=== PATIENT | female | born 1975 | race Caucasian/White ===

== ENCOUNTER → 2016-06-08 | Outpatient (CLI) | payer OTHER | LOC: LAB 12:12 | DX: M54.5 Low back pain (principal); Z79.82 Long term (current) use of aspirin; Z79.899 Other long term (current) drug therapy; K59.00 Constipation, unspecified; M25.78 Osteophyte, vertebrae; M47.814 Spondylosis without myelopathy or radiculopathy, thoracic region; Z88.1 Allergy status to other antibiotic agents | CPT/HCPCS: 72072; 74000 ==

== ENCOUNTER → 2016-06-22 | Outpatient (CLI) | payer OTHER | LOC: KOH-I 09:00 | DX: R51 Headache (principal) | CPT/HCPCS: 70450 ==

== ENCOUNTER → 2016-07-07 | Outpatient (CLI) | payer OTHER ==
[2016-07-07 11:30] LABS: HEMOGLOBIN 13.7 gm/dl (12.3-15.3); RED BLOOD COUNT 4.85 M/UL (4.00-5.10); WHITE BLOOD COUNT 5.1 K/UL (4.5-11.0)
[2016-07-07 11:53] LABS: BUN/CREATININE RATIO 45 (0-10)
== END ==
LOC: RAD 10:29
PROVIDERS: Emergency Medicine
DX: R60.0 Localized edema (principal); S29.012A Strain of muscle and tendon of back wall of thorax, initial encounter; S29.011A Strain of muscle and tendon of front wall of thorax, initial encounter; Y99.9 Unspecified external cause status
CPT/HCPCS: 36415; 73130; 73630; 80053; 83735; 83880; 84550; 85027

== ENCOUNTER → 2016-07-30 | Outpatient (CLI) | payer OTHER | LOC: RAD 15:27 | DX: M13.862 Other specified arthritis, left knee (principal); Z88.1 Allergy status to other antibiotic agents; Z79.82 Long term (current) use of aspirin; Z79.899 Other long term (current) drug therapy | CPT/HCPCS: 73564 ==

== ENCOUNTER → 2016-08-28 | Outpatient (CLI) | payer OTHER ==
[2016-08-28 11:04] LABS: HEMOGLOBIN 14.3 gm/dl (12.3-15.3); RED BLOOD COUNT 5.07 M/UL (4.00-5.10); WHITE BLOOD COUNT 5.1 K/UL (4.5-11.0)
[2016-08-28 11:28] LABS: BUN/CREATININE RATIO 24 (0-10)
== END ==
LOC: LAB 10:01
PROVIDERS: Emergency Medicine
DX: R10.12 Left upper quadrant pain (principal); E11.649 Type 2 diabetes mellitus with hypoglycemia without coma; E11.42 Type 2 diabetes mellitus with diabetic polyneuropathy; E11.65 Type 2 diabetes mellitus with hyperglycemia; E11.69 Type 2 diabetes mellitus with other specified complication; E66.8 Other obesity; E78.2 Mixed hyperlipidemia; G43.009 Migraine without aura, not intractable, without status migrainosus; G89.4 Chronic pain syndrome; J30.2 Other seasonal allergic rhinitis; J30.89 Other allergic rhinitis; M13.811 Other specified arthritis, right shoulder; M13.861 Other specified arthritis, right knee; M13.862 Other specified arthritis, left knee; M22.3X1 Other derangements of patella, right knee; M54.5 Low back pain; M67.863 Other specified disorders of tendon, right knee; R03.0 Elevated blood-pressure reading, without diagnosis of hypertension; R06.02 Shortness of breath; R23.8 Other skin changes; K59.00 Constipation, unspecified; S29.011A Strain of muscle and tendon of front wall of thorax, initial encounter; S29.012A Strain of muscle and tendon of back wall of thorax, initial encounter; S46.091S Other injury of muscle(s) and tendon(s) of the rotator cuff of right shoulder, sequela; S83.91XD Sprain of unspecified site of right knee, subsequent encounter; Y99.9 Unspecified external cause status
CPT/HCPCS: 36415; 74000; 80053; 82150; 83690; 85027

== ENCOUNTER 2016-08-30 13:26 | Emergency (ER) | payer OTHER ==
[2016-08-30 16:09] LABS: HEMOGLOBIN 14.9 gm/dl (12.3-15.3); RED BLOOD COUNT 5.22 M/UL (4.00-5.10); WHITE BLOOD COUNT 4.9 K/UL (4.5-11.0)
[2016-08-30 16:29] LABS: BUN/CREATININE RATIO 28 (0-10)
== END 2016-08-30 20:00 | disposition home or self-care (01) ==
LOC: ER1 13:26
PROVIDERS: Student in an Organized Health Care Education/Training Program
DX: R10.12 Left upper quadrant pain (principal); E87.6 Hypokalemia; E10.649 Type 1 diabetes mellitus with hypoglycemia without coma; R19.7 Diarrhea, unspecified; R11.2 Nausea with vomiting, unspecified; F17.210 Nicotine dependence, cigarettes, uncomplicated; E10.40 Type 1 diabetes mellitus with diabetic neuropathy, unspecified; Z90.49 Acquired absence of other specified parts of digestive tract; Z88.1 Allergy status to other antibiotic agents
CPT/HCPCS: 36415; 80053; 81001; 83605; 83690; 85025; 87086; 96361; 96374; 96375; 99284; J2270; J2405; J7050; Q9962

== ENCOUNTER 2016-09-27 20:04 | Emergency (ER) | payer OTHER | END 2016-09-27 20:58 | disposition home or self-care (01) | LOC: ER1 20:04 | DX: H60.92 Unspecified otitis externa, left ear (principal); J45.909 Unspecified asthma, uncomplicated; E11.40 Type 2 diabetes mellitus with diabetic neuropathy, unspecified; Z88.1 Allergy status to other antibiotic agents; Z87.891 Personal history of nicotine dependence | CPT/HCPCS: 99282 ==